=== PATIENT | male | born 1945 | race Caucasian/White ===

== ENCOUNTER 2017-04-02 13:53 | Emergency (ER) | payer OTHER ==
[~2017-04-02] VITALS: Ht 175.3 cm; Wt 81.8 kg
[2017-04-02 13:55] VITALS: BP 126/74; PULSE 85; RESP 17; TEMP 98.6; O2SAT 97
[2017-04-02] MEDS ORDERED: ASPI1TAB57 PO (14:03)
[2017-04-02] MEDS ORDERED: METF850T PO (14:03)
[2017-04-02] MEDS ORDERED: VALS1TAB63 PO (14:03)
[2017-04-02] MEDS ORDERED: HYDR25TA5 PO (14:03)
[2017-04-02] MEDS ORDERED: TETANUS/DIPHTHERIA TOXOID ADULT 0.5 ML VIAL IM ONE (14:15)
[2017-04-02] MEDS ORDERED: LIDOCAINE HCL 1% 50 ML VIAL INFIL ONE (14:15)
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
[2017-04-02] MEDS ORDERED: CEPH-460 PO (15:38)
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
== END 2017-04-02 16:07 | disposition home or self-care (01) ==
LOC: PHED 13:53
DX: S01.81XA Laceration without foreign body of other part of head, initial encounter (principal); S60.511A Abrasion of right hand, initial encounter; I10 Essential (primary) hypertension; E11.9 Type 2 diabetes mellitus without complications; V18.4XXA Pedal cycle driver injured in noncollision transport accident in traffic accident, initial encounter; Y93.55 Activity, bike riding; Z79.82 Long term (current) use of aspirin; Z79.84 Long term (current) use of oral hypoglycemic drugs; Z23 Encounter for immunization
CPT/HCPCS: 12013; 70486; 90471; 90714

== ENCOUNTER 2017-04-09 10:37 | Emergency (ER) | payer OTHER ==
[~2017-04-09] VITALS: Ht 172.7 cm; Wt 84.6 kg
[~2017-04-09 10:37] MED LIST: ASPI1TAB57 PO; CEPH-460 PO; HYDR25TA5 PO; METF850T PO; VALS1TAB63 PO
[2017-04-09 11:04] VITALS: BP 139/63; PULSE 64; RESP 18; TEMP 98.4; O2SAT 100
--- NOTE | 2017-04-09 11:36 | PD ---
HPI Chief Complaint: Wound/Suture/Staple Re-Check Time Seen by Provider: 11:23 Travel History International Travel<30 days: Yes Contact w/Intl Traveler<30days: Yes Name of Country Traveled to: [place] Traveled to known affect area: No History of Present Illness HPI Patient comes in requesting suture removal from his forehead placed 7 days ago. Patient denies any complaints or concerns with sutures. Reports been keeping it dry and clean as possible using soap and water. PFSH Past Medical History Cardiovascular Problems: Yes (HTN) Diabetes: Yes Patient Takes Glucophage: Yes Diminished Hearing: No Hypertension: Yes Tetanus Vaccination: < 5 Years Past Surgical History Appendectomy: Yes Social History Alcohol Use: Yes (occasional) Tobacco Use: No (quit 1982) Substance Use: No Allergies-Medications (Allergen,Severity, Reaction): Uncoded Allergies: Pain Killers (Adverse Reaction, Severe, 04/02/17) Pt states the "mess with his Liver" Reported Meds & Prescriptions Reported Meds & Active Scripts Active Reported Aspirin 81 (Aspirin) 81 Mg Tabdr 81 Mg PO HS Hydrochlorothiazide 25 Mg Tab Unknown Dose PO DAILY Metformin (Metformin HCl) 850 Mg Tab Unknown Dose PO QID Valsartan 40 Mg Tab Unknown Dose PO BID Review of Systems Except as stated in HPI: all other systems reviewed are Neg Physical Exam Narrative GENERAL: Well-developed, well nourished, in no acute distress, and non-ill appearing. SKIN: 6 sutures noted left forehead just superior to the left eyebrow lateral aspect. There dry clean intact. There is some scabbing noted. There is no sign of infection. HEAD: Atraumatic. Normocephalic. EYES: Pupils equal and round. EOMI. No scleral icterus. No injection or drainage. ENT: No nasal bleeding or discharge. Mucous membranes pink and moist. NECK: Trachea midline. Supple. No nuclear rigidity. RESPIRATORY: No accessory muscle use. No respiratory distress. MUSCULOSKELETAL: No obvious deformities. No clubbing. No cyanosis. No edema. Full range of motion. NEUROLOGICAL: Awake and alert. No obvious cranial nerve deficits. Motor grossly within normal limits. Normal speech. PSYCHIATRIC: Appropriate mood and affect; insight and judgment normal. Data Data Last Documented VS Vital Signs Date Time Temp Pulse Resp B/P (MAP) Pulse Ox O2 Delivery O2 Flow Rate FiO2 04/09/17 11:04 98.4 64 18 139/63 (88) 100 [facility] Medical Decision Making Medical Screen Exam Complete: Yes Emergency Medical Condition: Yes Differential Diagnosis Wound check, wound infection, suture removal Narrative Course Patient in no obvious distress upon re-evaluation. Any questions/concerns in reference to patient diagnosis/condition discussed and clarified prior to patient's discharge. Reinforced sheer importance of close follow up with patient 's primary physician or primary care clinic. Instructed patient to return to ED immediately, if symptoms return/worsen. Patient showed understanding of above instructions. Further instructions and recommendations were detailed in discharge paperwork. Patient ambulated without difficulty out of ED at discharge. Procedures Procedure Narrative Verbal consent was obtained. 6 sutures were easily removed. There was no complications. Patient tolerated procedure well. Diagnosis Primary Impression: Visit for suture removal Referrals: [facility] Patient Instructions: General Instructions, Stitches Removal (DC) Additional Instructions: Follow-up with your primary care physician next week for reevaluation. Keep wound dry and clean as possible using soap and water. Use Neosporin to promote healing. Return to the emergency department if symptoms get worse. Disposition: 01 DISCHARGE HOME Condition: Stable Brandin Echavarria Apr 09, 2017 11:36
== END 2017-04-09 11:55 | disposition home or self-care (01) ==
LOC: PHEFT 10:37
DX: Z48.02 Encounter for removal of sutures (principal)
CPT/HCPCS: 99281